=== PATIENT | female | born 1940 | race Caucasian/White ===

== ENCOUNTER 2020-12-01 11:08 | Inpatient (IN) ==
[2020-12-01] MEDS ORDERED: GLUCAGON 1 MG VIAL IM PRN (14:10)
[2020-12-01] MEDS ORDERED: DEXTROSE 50% 25 GM/50 ML VIAL IV PRN (14:10)
[2020-12-01 15:00] LABS: Basophils # 0.1 10*3/uL (0.0-0.2); Basophils % 0.5 % (0.0-0.8); Eosinophils % 0.3 % (0.00-10.9); Hematocrit 24.4 VOL% (35.7-47.0); Hemoglobin 7.7 GM/DL (12.0-16.0); Immature Granulocytes % 0.3 %; Immature Granulocytes Absolute 0.03 #; Lymphocytes # 1.4 10*3/uL (1.4-4.0); Lymphocytes % 12.5 % (21.3-54.2); Mean Corpuscular HGB Conc 31.6 GM/DL (32-36); Mean Corpuscular Volume 93.5 FL (87-102); Mean Platelet Volume 10.3 FL (9.6-12.0); Monocytes % 6.6 % (1.7-12.7); Neutrophils % 79.8 % (38.7-73.9); Platelet Count 330 T/CUMM (130-400); Red Blood Count 2.61 MC/CUMM (3.8-5.5); Red Cell Distribution Width 13.3 % (9.3-17.3); White Blood Count 11.3 T/CUMM (4-12)
[2020-12-01 15:24] LABS: Alanine Aminotransferase 18 U/L (13-56); Albumin 3.3 G/DL (3.4-5.0); Alkaline Phosphatase 102 U/L (45-117); Aspartate Amino Transferase 18 U/L (0-37); Bilirubin,Total < 0.39 MG/DL (0.2-1.0); Blood Urea Nitrogen 75 MG/DL (7-18); Carbon Dioxide 25 MMOL/L (21-32); Estimated Glom Filtration Rate 53 ML/MIN; Glucose 90 MG/DL (74-106); Osmolality,Calculated 298.5 MOS/KG (273-304); Potassium 4.3 MMOL/L (3.5-5.1); Sodium 139 MMOL/L (136-145); Total Protein 6.3 G/DL (6.4-8.2)
[2020-12-01] MEDS ORDERED: SODIUM CHLORIDE 0.9% 1,000 ML IV PRN (15:30)
[2020-12-01] MEDS: SODIUM CHLORIDE 0.9% 1,000 ML IV SCH (17:47)
[2020-12-01 20:50] LABS: Hematocrit 21.4 VOL% (35.7-47.0)
[2020-12-01] MEDS ORDERED: PANTOPRAZOLE 40 MG TABLET PO SCH (21:00)
[2020-12-01] MEDS: PANTOPRAZOLE 40 MG VIAL IV SCH (21:27)
[2020-12-02 05:03] LABS: Basophils # 0.1 10*3/uL (0.0-0.2); Basophils % 0.7 % (0.0-0.8); Eosinophils # 0.1 10*3/uL (0.0-0.87); Eosinophils % 1.6 % (0.00-10.9); Hematocrit 21.1 VOL% (35.7-47.0); Hemoglobin 6.7 GM/DL (12.0-16.0); Immature Granulocytes % 0.3 %; Immature Granulocytes Absolute 0.03 #; Lymphocytes # 1.9 10*3/uL (1.4-4.0); Mean Corpuscular HGB Conc 31.8 GM/DL (32-36); Mean Corpuscular Volume 92.5 FL (87-102); Mean Platelet Volume 10.3 FL (9.6-12.0); Monocytes % 6.9 % (1.7-12.7); Neutrophils % 69.5 % (38.7-73.9); Platelet Count 270 T/CUMM (130-400); Red Blood Count 2.28 MC/CUMM (3.8-5.5); Red Cell Distribution Width 13.5 % (9.3-17.3)
[2020-12-02 05:33] LABS: Calcium 8.7 MG/DL (8.5-10.1); Osmolality,Calculated 293.1 MOS/KG (273-304); Potassium 4.1 MMOL/L (3.5-5.1)
[2020-12-02] MEDS: SODIUM CHLORIDE 0.9% 1,000 ML IV SCH ×2 (07:08→21:16)
[2020-12-02] MEDS ORDERED: ACETAMINOPHEN 325 MG TABLET PO PRN (08:45)
[2020-12-02 08:51] LABS: Free T4 (Free Thyroxine) 0.54 NG/DL (0.76-1.46)
[2020-12-02] MEDS: PANTOPRAZOLE 40 MG VIAL IV SCH ×2 (09:12→21:18)
[2020-12-02] MEDS ORDERED: ETOMIDATE 40 MG/20 ML VIAL IV ONE (14:57)
[2020-12-02] MEDS ORDERED: LIDOCAINE 2% 5 ML VIAL ONE (14:57)
[2020-12-02] MEDS ORDERED: propofoL 200 MG/20 ML VIAL IV ONE (14:57)
[2020-12-02] MEDS: LACTATED RINGERS 1,000 ML IV SCH ×2 (15:20→16:10)
[2020-12-02] MEDS ORDERED: ONDANSETRON 4 MG/2 ML VIAL IV ONE (15:56)
[2020-12-02] MEDS: ONDANSETRON 4 MG/2 ML VIAL IV PRN (17:12)
[2020-12-02 18:38] LABS: Hematocrit 31.6 VOL% (35.7-47.0); Hemoglobin 10.3 GM/DL (12.0-16.0)
[2020-12-02] MEDS: hydrOXYzine HCL 25 MG TABLET PO SCH (21:15)
[2020-12-03] MEDS: ONDANSETRON 4 MG/2 ML VIAL IV PRN (06:48)
[2020-12-03] MEDS ORDERED: THYROID 60 MG TABLET PO SCH (07:00)
[2020-12-03 07:08] LABS: Basophils # 0.1 10*3/uL (0.0-0.2); Basophils % 0.8 % (0.0-0.8); Eosinophils # 0.3 10*3/uL (0.0-0.87); Eosinophils % 3.7 % (0.00-10.9); Hematocrit 29.8 VOL% (35.7-47.0); Hemoglobin 9.5 GM/DL (12.0-16.0); Immature Granulocytes % 0.3 %; Immature Granulocytes Absolute 0.02 #; Lymphocytes # 1.6 10*3/uL (1.4-4.0); Lymphocytes % 21.6 % (21.3-54.2); Mean Corpuscular HGB Conc 31.9 GM/DL (32-36); Mean Corpuscular Volume 89.5 FL (87-102); Mean Platelet Volume 10.6 FL (9.6-12.0); Monocytes % 9.7 % (1.7-12.7); Neutrophils % 63.9 % (38.7-73.9); Platelet Count 249 T/CUMM (130-400); Red Blood Count 3.33 MC/CUMM (3.8-5.5); White Blood Count 7.2 T/CUMM (4-12)
[2020-12-03 07:18] LABS: Calcium 8.5 MG/DL (8.5-10.1); Potassium 3.9 MMOL/L (3.5-5.1)
[2020-12-03] MEDS ORDERED: PANTOPRAZOLE 40 MG TABLET PO SCH (07:30)
[2020-12-03 07:53] VITALS: BP 143/56
[2020-12-03] MEDS: PANTOPRAZOLE 40 MG VIAL IV SCH (08:38)
[2020-12-03] MEDS: hydrOXYzine HCL 25 MG TABLET PO SCH (08:38)
[2020-12-03] MEDS: SODIUM CHLORIDE 0.9% 1,000 ML IV SCH (08:39)
[2020-12-03] MEDS ORDERED: amLODIPine 5 MG TABLET PO SCH (09:00)
== END 2020-12-03 11:30 | disposition home or self-care (01) | DRG 378 ==
LOC: N.3E → SUATTDRO 13:03
PROVIDERS: ADMIT Internal Medicine; ATTEND Internal Medicine